=== PATIENT | female | born 1970 | race Caucasian/White ===

== ENCOUNTER → 2016-12-14 | Outpatient (CLI) | payer OTHER ==
--- NOTE | 2016-12-14 17:30 | MA ---
Screening Digital Mammogram Clinical Indications: Routine screening. Technique: Standard cephalocaudal and mediolateral oblique projections were obtained. This examinat ion was processed by the [employer] computer aided detection system. Comparison: November 11, 2015; November 02, 2014; October 22, 2012. Breast density: D; The breasts are extremely dense, which lowers the sensitivity of mammography. Findings: CAD was reviewed. There are no new masses, abnormal clusters of microcalcifications, or si gnificant axillary lymphadenopathy. Impression: Negative mammogram. BI-RADS 1. Dense breasts. This limits the sensitivity of mammography. Recommendation: Routine screening is recommended in one year, as long as physical examination is luis ign in this patient with extremely dense breast parenchyma. [facility] will send a result letter to the patient. Negative mammography should not preclude additional workup of a clinically suspicious finding. The patient's information is entered into a reminder system with a target due date for her next mammo gram.
== END ==
LOC: BMCIMAGING 14:19
DX: Z12.31 Encounter for screening mammogram for malignant neoplasm of breast (principal)
CPT/HCPCS: G0202

== ENCOUNTER 2017-05-24 06:21 | Emergency (ER) | payer OTHER ==
--- NOTE | 2017-05-24 06:40 | CPEKG ---
Heart Rate: 56 RR Interval: 1071 P-R Interval: 152 QRSD Interval: 78 QT Interval: 428 QTC Interval: 414 P [place]: 62 QRS [place]: 70 T Wave [place]: 63 EKG Severity - NORMAL ECG - EKG Impression: SINUS RHYTHM Electronically Signed By: Rodriguez Browne 24-May-2017 10:52:05
[2017-05-24] MEDS ORDERED: ASPIRIN 81 MG CHEWABLE TAB PO ONE (06:43)
[2017-05-24 06:49] LABS: % IMMATURE GRANULYOCYTES 0.2 % (0.0-1.1); ABSOLUTE IMMATURE GRANULOCYTES 0.01 10^3/uL (0.00-0.10); ADD DIFF? NO; ADD MORPH? NO; ADD SCAN? NO; ATYPICAL LYMPHOCYTE FLAG 0 (0-99); FRAGMENT RBC FLAG 0 (0-99); HEMATOCRIT 39.1 % (38.0-47.0); HEMOGLOBIN 13.8 g/dL (12.6-16.3); LEFT SHIFT FLG 0 (0-99); LIPEMIA HEMOLYSIS FLAG 90 (0-99); MEAN CELL HEMOGLOBIN 33.1 pg (27.9-34.1); MEAN CELL HEMOGLOBIN CONCENTR. 35.3 g/dL (32.4-36.7); MEAN CELL VOLUME 93.8 fL (81.5-99.8); MEAN PLATELET VOLUME 8.2 fL (8.7-11.7); PLATELET CLUMPS FLAG 0 (0-99); PLATELET COUNT 232 10^3/uL (150-400); RED BLOOD CELL COUNT 4.17 10^6/uL (4.18-5.33); RED CELL DISTRIBUTION WIDTH 12.3 % (11.5-15.2)
[2017-05-24 07:01] LABS: CALCIUM 9.8 mg/dL (8.5-10.4); GLUCOSE 88 mg/dL (70-100); POTASSIUM 4.2 mEq/L (3.5-5.2); SODIUM 139 mEq/L (134-144)
--- NOTE | 2017-05-24 07:08 | EDPHY ---
H & P Stated Complaint: dull L low SP x5d, palpitations and sharp pain last noc, exertional dyspnea Time Seen by Provider: 05/24/17 06:42 HPI/ROS: HPI The patient presents with chest pain for the last 5 days which started at rest and has been constant. The pain is dull and in her left chest, it is worse with movement. It is mild in severity. She noticed last night when she was laying on her left chest she developed an episode of sharp pain associated with palpitations. This is now resolved, however concerned her and caused her to seek care in the emergency room. She has not had any shortness of breath, nausea, vomiting, dizziness, diaphoresis. On May 06 she took a 2 [address] flight to [place]. She has no personal or family history of DVT PE. REVIEW OF SYSTEMS Constitutional: No fever, no chills. Eyes: No discharge. ENT: No sore throat. Cardiovascular: See HPI Respiratory: No cough, no shortness of breath. Gastrointestinal: No abdominal pain, no vomiting. Genitourinary: No hematuria. Musculoskeletal: No back pain. Skin: No rashes. Neurological: No headache. PMHx: Brain mass, status post craniotomy and cervical spinal fusion, radiation Soc Hx: No tobacco use FHx: No family history of CAD PHYSICAL General Appearance: Alert, no distress Eyes: Pupils equal and round no pallor or injection ENT, Mouth: Mucous membranes moist Respiratory: There are no retractions, lungs are clear to auscultation Cardiovascular: Regular rate and rhythm, no chest wall tenderness Gastrointestinal: Abdomen is soft and non-tender, no masses, bowel sounds normal Neurological: A&O, moves all extremities Skin: Warm and dry, no rashes Musculoskeletal: Neck is supple non tender Extremities: symmetrical, full range of motion Psychiatric: Patient is oriented X 3, there is no agitation Source: Patient Exam Limitations: No limitations - Personal History LMP (Females 10-55): 15-21 Days Ago Current Tetanus/Diphtheria Vaccine: Yes Current Tetanus Diphtheria and Acellular Pertussis (TDAP): Yes - Medical/Surgical History Hx Asthma: No Hx Chronic Respiratory Disease: No Hx Diabetes: No Hx Cardiac Disease: No Hx Renal Disease: No Hx Cirrhosis: No Hx Alcoholism: No Hx HIV/AIDS: No Hx Splenectomy or Spleen Trauma: No Other PMH: craniotomy/l calf dvt/neck fusion - Social History Smoking Status: Never smoked Constitutional: Initial Vital Signs Temperature (C) 36.6 C 05/24/17 06:26 Heart Rate 62 05/24/17 06:26 Respiratory Rate 18 05/24/17 06:26 Blood Pressure 100/67 05/24/17 06:26 O2 Sat (%) 97 05/24/17 06:26 O2 Delivery Mode Room Air Allergies/Adverse Reactions: No Known Allergies Allergy (Verified 10/17/16 09:10) Home Medications: Medication Instructions Recorded Celexa 10/17/16 Medical Decision Making - Diagnostics EKG Interpretation: EKG: Complete interpretation has been separately recorded in the [facility] archive. Summary impression: Normal sinus rhythm, no ischemia present Differential Diagnosis: This is a 47-year-old female, with past history of brain mass, who presents with chest pain for the last 5 days, with no associated features. Pain is worse with movement. Differential diagnosis includes costochondritis, musculoskeletal pain, ACS, PE, GERD. In the emergency room, EKG was performed and was unremarkable. The patient was given a dose of aspirin. She refused chest x-ray because she is concerned about radiation exposure. Labs were negative including D-dimer and troponin. I feel her pain is likely musculoskeletal versus costochondritis. I have encouraged anti-inflammatories. She will be discharged with primary care doctor follow-up. I have encouraged her to return if she is worse in any way. - Data Points Laboratory Results: Laboratory Results 05/24/17 06:42 05/24/17 06:42 Medications Given: Discontinued Medications Aspirin (Aspirin) 324 mg PO EDNOW ONE Stop: 05/24/17 06:44 Last Admin: 05/24/17 06:51 Dose: 324 mg Departure - Departure Disposition: Home, Routine, Self-Care Clinical Impression: Chest pain Qualifiers: Chest pain type: unspecified Qualified Code(s): R07.9 - Chest pain, unspecified Condition: Good Instructions: Chest Pain (ED) Additional Instructions: Please return to the emergency room if your chest pain is worse in any way. Otherwise please follow-up with your primary care doctor in 1-2 days. Referrals: Honey Pitts MD [Primary Care Provider] - As per Instructions
[2017-05-24 07:12] LABS: ANION GAP 10 mEq/L (8-16); CARBON DIOXIDE 24 mEq/l (22-31); CHLORIDE 105 mEq/L (97-110); CREATININE 0.7 mg/dL (0.6-1.0); GLOMERULAR FILTRATION RATE > 60; TROPONIN I < 0.012 ng/mL (0-0.034)
[2017-05-24 08:13] VITALS: BP 95/68; PULSE 54; RESP 15; TEMP 98.4; O2SAT 98
== END 2017-05-24 08:10 | disposition home or self-care (01) ==
DX: R07.9 Chest pain, unspecified (principal)

== ENCOUNTER → 2018-01-07 | Outpatient (CLI) | payer OTHER | LOC: BMCIMAGING 12:13 | PROVIDERS: ATTEND Internal Medicine | DX: Z12.31 Encounter for screening mammogram for malignant neoplasm of breast (principal) ==

== ENCOUNTER → 2018-01-14 | Outpatient (CLI) | payer OTHER | LOC: BMCIMAGING 11:07 | PROVIDERS: ATTEND Internal Medicine | DX: R92.8 Other abnormal and inconclusive findings on diagnostic imaging of breast (principal) ==

== ENCOUNTER 2019-01-14 22:01 | Emergency (ER) | payer OTHER ==
--- NOTE | 2019-01-14 23:02 | EDPHY ---
H & P Stated Complaint: POSS R LEG DVT/ W/ HX OF DVT'S Time Seen by Provider: 01/14/19 22:47 HPI/ROS: HPI: This is a 48-year-old female who presents with Chief Complaint: POSS R LEG DVT/ W/ HX OF DVT'S Location: Right posterior knee Quality: Pressure Duration: 24 hr Signs and Symptoms: No bleeding, no radiation, no numbness, no weakness, no tingling, no incontinence, no decreased range of motion, + swelling, + pain, no fever Timing: Acute Severity: Mild Context: Patient has a history of left calf DVT status post surgery with 3 months of anticoagulation presents with 24 hr of right posterior knee fullness and cramping pain. She denies trauma, injury, skin color changes, redness. She has had no recent foreign travel. Nonsmoker. Does not take any hormone replacement therapy. Denies radiation, weakness, decreased range of motion. Modifying Factors: None Comment: ROS: A comprehensive 10 system review of systems is otherwise negative aside from elements mentioned in the history of present illness. MEDICAL/SURGICAL/SOCIAL HISTORY: Medical history: Left calf DVT Surgical history: craniotomy/cervical fusion Social history: with children. Nonsmoker CONSTITUTIONAL: Well-developed, well-nourished, physically fit middle-aged white female, awake and alert, no obvious distress HEENT: Atraumatic and normocephalic. NECK: supple, no midline tenderness Cardiovascular: Normal S1/S2, regular rate, regular rhythm, without murmur rub or gallop. PULMONARY/CHEST: Symmetrical and nontender. Clear to auscultation bilaterally. Good air movement. No accessory muscle usage. ABDOMEN: Soft, nondistended, nontender. EXTREMITIES: 2/2 pulses, strength 5/5, right KNEE: Fullness in the popliteal fossa; no effusion, no medial and lateral joint line tenderness, full extension to 180, flexion to 120. No pain with varus and valgus exam. No pain with anterior drawer or posterior drawer test. Extensor mechanism intact. DIP/PIP/ MCP flexion/extension intact with good light touch sensation. no deformities, no clubbing, no cyanosis or edema. Negative Homans sign, no palpable cords. NEUROLOGICAL: no focal neuro deficits. GCS 15. Light touch sensation intact. SKIN: Warm and dry, no erythema. no rash. Good capillary refill. Source: Patient Exam Limitations: No limitations - Personal History LMP (Females 10-55): 1-7 Days Ago Current Tetanus Diphtheria and Acellular Pertussis (TDAP): Yes - Medical/Surgical History Hx Asthma: No Hx Chronic Respiratory Disease: No Hx Diabetes: No Hx Cardiac Disease: No Hx Renal Disease: No Hx Cirrhosis: No Hx Alcoholism: No Hx HIV/AIDS: No Hx Splenectomy or Spleen Trauma: No Other PMH: craniotomy/l calf dvt/neck fusion - Social History Smoking Status: Never smoked Constitutional: Initial Vital Signs Temperature (C) 36.4 C 01/14/19 22:04 Heart Rate 65 01/14/19 22:04 Respiratory Rate 16 01/14/19 22:04 Blood Pressure 129/73 H 01/14/19 22:04 O2 Sat (%) 97 01/14/19 22:04 O2 Delivery Mode Room Air Allergies/Adverse Reactions: No Known Allergies Allergy (Verified 10/17/16 09:10) Home Medications: Medication Instructions Recorded Celexa 10/17/16 Medical Decision Making - Diagnostics Imaging Results: Imaging Impressions Extremity Venous Study 01/14/19 22:22 Impression: 1. There is no sonographic evidence of deep or superficial vein thrombosis in the right lower extremity. 2. There is a 2.3 cm Hastings cyst in the right posterior medial popliteal fossa. Findings were discussed with Bretin Singh MD at 22:58, on 01/14/2019. ED Course/Re-evaluation: Right lower extremity ultrasound ordered and per Dr. Ellsworth shows: no sonographic evidence of deep or superficial vein thrombosis in the right lower extremity. There is a 2.3 cm Hastings cyst in the right posterior medial popliteal fossa. Advised supportive care, Ted wrap and orthopedic follow-up as needed No signs of neurovascular compromise/tenting of skin/compartment syndrome/ extremities and joints examined above and below area of concern and are neurovascularly intact. This patient was seen under the supervision of my secondary supervising physician. I evaluated care for this patient with attending. Discussed this patient with Dr. Singh. Differential Diagnosis: Leg swelling including but not limited to hypoalbuminemia, congestive heart failure, cor pulmonale, chronic venous stasis and DVT. Departure - Departure Disposition: Home, Routine, Self-Care Clinical Impression: Hastings's cyst of knee Qualifiers: Laterality: right Qualified Code(s): M71.21 - Synovial cyst of popliteal space [Hastings], right knee Condition: Good Instructions: Bakers Cyst (ED) Additional Instructions: Take Tylenol 650 mg every 4 hours and/or Ibuprofen 600 mg every 8 hours with food as needed for pain. Wear compression socks an as-needed when standing for long periods of time. If Hastings cyst continues to cause discomfort, follow-up with Orthopedics. Referrals: Honey Pitts MD [Primary Care Provider] - As per Instructions Christofer Wynn MD [Medical Doctor] - As per Instructions
[2019-01-14 23:23] VITALS: BP 107/73
== END 2019-01-14 23:23 | disposition home or self-care (01) ==
DX: M71.21 Synovial cyst of popliteal space [Baker], right knee (principal); Z86.718 Personal history of other venous thrombosis and embolism

== ENCOUNTER → 2019-03-09 | Outpatient (CLI) | payer OTHER | LOC: FIMAGING 08:19 | PROVIDERS: ATTEND Internal Medicine | DX: Z12.31 Encounter for screening mammogram for malignant neoplasm of breast (principal) ==

== ENCOUNTER → 2019-03-19 | Outpatient (CLI) | payer OTHER | LOC: FIMAGING 12:53 | PROVIDERS: ATTEND Internal Medicine | DX: R92.0 Mammographic microcalcification found on diagnostic imaging of breast (principal) ==

== ENCOUNTER → 2019-03-31 | Day surgery (SDC) | payer OTHER ==
[~2019-03-31] MED LIST: BUPIVACAINE 0.5% 30 ML SDV ONE; LIDOCAINE 1% 300 MG/30 ML SDV ONE
== END ==
LOC: FIMAGING 07:24
PROVIDERS: ATTEND Internal Medicine
PROC: 0HBU3ZX Excision of Left Breast, Percutaneous Approach, Diagnostic (ICD-10-PCS; principal; 2019-03-31)
DX: N60.12 Diffuse cystic mastopathy of left breast (principal); R92.0 Mammographic microcalcification found on diagnostic imaging of breast